=== PATIENT | male | born 1940 | race Caucasian/White ===

== ENCOUNTER → 2018-10-25 08:06 | Outpatient (CLI) | payer MEDICARE, OTHER, SELFPAY ==
--- NOTE | 2018-10-25 | DI.US.S_ITS ---
PROCEDURE: US RENAL COMPLETE INDICATIONS: BLADDER STONE TECHNIQUE: Real-time scanning was performed of the kidneys and bladder, with image documentation. COMPARISON: None. FINDINGS: Kidneys: Kidneys are normal in size. Right kidney measures 11.5 cm long; left kidney measures 11.4 cm long. Right renal cortical thickness is 1.2 cm; left renal cortical thickness is 1.5 cm. Renal cortical echotexture is normal. No hydronephrosis or nephrolithiasis. No suspicious solid mass lesions. Bladder: Pre-void bladder volume is 51 mL. Post-void residual is 0 mL. Pre-void images demonstrate no intraluminal masses or stones. On pre-void images, neither ureteral jets are noted with color Doppler interrogation. (Of note, ureteral jets may not be detectable in up to 25% of cases due to insufficient differences in specific gravity between ureteral and bladder urine). Miscellaneous: No free pelvic fluid. IMPRESSION: No hydronephrosis or nephrolithiasis found. No bladder calculus seen. Normal bladder emptying. Dictated by: Renard Pond M.D. on 10/25/2018 at 11:01 Approved by: Renard Pond M.D. on 10/25/2018 at 11:20
== END ==
PROVIDERS: Visit Provider Urology
DX: N21.0 Calculus in bladder (principal)
CPT/HCPCS: 76770